=== PATIENT | female | born 1995 ===

== ENCOUNTER 2017-02-12 06:13 | Inpatient (IN) ==
[2017-02-12] MEDS ORDERED: CITRIC ACID/SODIUM CITRATE 30 ML UDCUP PO ONE (06:38)
[2017-02-12] MEDS ORDERED: FAMOTIDINE 20 MG/2 ML VIAL IV ONE (06:38)
[2017-02-12] MEDS ORDERED: ceFAZolin 2,000 MG in PREMIX 1 EACH IV ONE (06:38)
[2017-02-12 07:59] LABS: Basophils % 0.1 % (0.0-0.8); Eosinophils % 0.3 % (0.00-10.9); Hematocrit 27.7 VOL% (35.7-47.0); Hemoglobin 8.9 GM/DL (12.0-16.0); Immature Granulocytes % 0.8 %; Immature Granulocytes Absolute 0.08 #; Lymphocytes # 0.9 10*3/uL (1.4-4.0); Mean Corpuscular HGB Conc 32.1 GM/DL (32-36); Mean Corpuscular Hemoglobin 25 PG (27-34); Mean Corpuscular Volume 77.6 FL (87-102); Monocytes # 0.6 10*3/uL (0.11-0.8); Monocytes % 6.5 % (1.7-12.7); Neutrophils # 8.2 10*3/uL (1.4-7.4); Neutrophils % 83.3 % (38.7-73.9); Platelet Count 83 T/CUMM (130-400); Red Blood Count 3.57 MC/CUMM (3.8-5.5); Red Cell Distribution Width 15.4 % (9.3-17.3); White Blood Count 9.8 T/CUMM (4-12)
[2017-02-12 08:44] LABS: Albumin 2.5 G/DL (3.4-5.0); Bilirubin,Total 0.4 MG/DL (0.2-1.0); Osmolality,Calculated 273.5 MOS/KG (273-304); Potassium 4.2 MMOL/L (3.5-5.1); Total Protein 5.8 G/DL (6.4-8.3)
[2017-02-12] MEDS ORDERED: SODIUM CHLORIDE 0.9% 250 ML IV PRN (08:45)
[2017-02-12] MEDS ORDERED: OXYTOCIN 10 UNIT/ML VIAL IM ONE (09:00)
[2017-02-12] MEDS ORDERED: OXYTOCIN/LR 30 UNIT/1,000 ML BAG IV ONE (09:00)
[2017-02-12 09:03] LABS: Hypochromasia Slight; Polychromasia Slight
--- NOTE | 2017-02-12 09:16 | OB/GYN History & Physical ---
History of Present Illness Chief complaint: In for repeat c/s due to previous section History of present illness: Ms. Knox is a 21 year old female 2 para 1 living 1. Her VIDA is 2016 for an estimated gestational age of 39 weeks and 1 day. The patient presents for elective repeat section due to previous section. The risks and benefits of been thoroughly discussed with this patient and significant other and plan of care has been discussed with Dr. Sequeira, all parties are in agreement plan. The patient received her care through the [facility] in the [place] [facility]. She received routine care and her course was uneventful. labs: She is O+, serology is nonreactive, rubella is indeterminate, hepatitis B is negative, HIV is negative, GBS culture is negative review of systems is negative with exception of above. Home Medications Medication Instructions Recorded Confirmed Type Multivitamin () [ 1 tablet PO DAILY 02/12/17 02/12/17 History Vitamin] Allergies Allergy/AdvReac Type Severity Reaction Status Date / Time No Known Allergies Allergy Unverified 04/02/16 19:09 12 point system: reviewed and no additional remarkable complaints except as stated Medical,Surgical,& Family Hx - Medical History Medical History: noncontributory Neurology: No history of: Seizures HEENT: History of: Eye Problem (wears glasses) No history of: Ear Problem, Dental Problems, Glaucoma, Oral Cancer, HEENT Problems Respiratory: History of: Asthma No history of: Bronchitis, COPD, Intubation, Obstructive Sleep Apnea, Pulmonary Embolism, Pulmonary Hypertension, Pneumonia, Lung Cancer, Respiratory Problems - Surgical History HEENT Surgeries: Patient denies: Eye Surgery, Tonsilectomy & Adenoidectomy Abdominal Surgeries: Surgical HX of: Appendectomy, Cholecystectomy Reproductive Surgeries: Surgical HX of;: Section - Family History Family History: Reports;: Family Diabetes (PGM), Family Hypertension (PGM), Additional Family History (asthma - pt, pt's mother, PGM) Denies;: Family Cancer, Family Heart Disease, Family Hematology, Family Psychiatric Problems, Family Stroke - Social History Smoking Status: Never smoker Frequency of Alcohol Use: None Type of Drug Use: None Marital Status: Lives With:: Spouse Functional capacity: independent ambulation Exam ARBORIST CLIMBER - Constitutional Vitals: Vital Signs Temp Pulse Resp BP 02/12/17 08:00 97.4 F L 72 18 115/72 General appearance: no acute distress - Antepartum / Post Antepartum Exam Cervix -Dilatation: Fingertip Breast: bilateral: normal Abdomen obstetrics: Present: bowel sounds normal Vagina: Present: normal moisture Uterus exam: Present: enlarged - Respiratory Respiratory exam: Present: clear to auscultation bilaterally - Cardiovascular Cardiovascular exam: Present: regular rate and rhythm - GI/Abdominal GI/Abdominal exam: Present: normal bowel sounds, soft - Extremities Exam Extremities exam: Present: normal inspection - Back Exam Back exam: Present: normal inspection - Neurological Exam Neurological exam: Present: alert, oriented X3 - Psychiatric Psychiatric exam: Present: normal affect, normal mood - Skin Skin exam: Present: normal color, warm Assessment and Plan (1) Term Status: Acute Assessment and plan: Admit IV fluids Informed consent for repeat section Preop for section Anticipate viable infant Current Visit: Yes (2) Previous section Status: Acute Assessment and plan: Same as above Current Visit: Yes Results - Labs CBC & BMP: 02/12/17 07:52 02/12/17 06:45
[2017-02-12 09:37] LABS: Apearance,Urine CLEAR (Clear); Bilirubin,Urine Negative (Negative); Blood, Urine Negative (Negative); Glucose,Urine (UA) Negative (Negative); Ketones,Urine Negative (Negative); Nitrite,Urine Negative (Negative); Protein,Urine Negative; RBC,Urine <1 /HPF (0-4); Squamous Epithelial Cell,Urine Occasional /HPF (0-10); Urine Color Yellow (Yellow); Urine Specific Gravity 1.012 (1.001-1.035); Urine Urobilinogen < 2.0 EU/DL (0.2-1.0); WBC,Urine <1 /HPF (0-6)
[2017-02-12] MEDS: LACTATED RINGERS 1,000 ML IV SCH (09:37)
[2017-02-12] MEDS ORDERED: LACTATED RINGERS 1,000 ML IV ONE (09:40)
[2017-02-12 11:15] LABS: Cord Arterial Blood HCO3 26.7 MMOL/L
[2017-02-12 11:18] LABS: Cord Venous Blood HCO3 23.9 MMOL/L; Cord Venous Blood PCO2 47.4 MMHG; Cord Venous Blood PO2 56.7 MMHG
--- NOTE | 2017-02-12 11:24 | Operative Note ---
Date of procedure: 02/12/17 Procedure: Preoperative diagnosis: Term 39 weeks Postoperative diagnosis: Same, thrombocytopenia Anesthesia:[] General Estimated blood loss: [] 500 cc Surgeon: Dr. Sequeira Findings: [] Intrauterine delivered at 10:52 AM, female, weight 7 lbs. 13 oz., Apgars 8 at 1 minute and 9 at 5 minutes, delivered the placenta was at 1053 Complications: None Procedure: Low transverse section, intraoperative transfusion of 1 unit of packed RBCs doing the surgery. The patient was taken to the operating suite heart tones were obtained prior to and after regional anesthesia was obtained. She was placed in supine position her abdomen was prepped and draped in usual manner for major abdominal surgery. Through an abdominal incision the skin, subcutaneous, fascial layer and peritoneal the abdomen was entered. The bladder flap was created and a low transverse incision was made.. Fluid was clear and normal amount X, Apgars, the placenta was delivered and sent to lab for further evaluation. Injected with intrauterine Pitocin. The first layer of the uterus was closed with #1 Vicryl in a continuous locking manner. Close to imbricate the first layer with #1 Vicryl. The peritoneum was approximated with #2-0 Vicryl.[] All the last sponges and instruments were accounted for -2.) #2-0 Vicryl. Fascia was approximated with #0-0 Maxon.. The skin was approximated with vipul. She tolerated procedure well and was taken to recovery room in stable condition. Surgeon / Physician: Claudia Sequeira Results - Labs CBC & BMP: 02/12/17 07:52 02/12/17 06:45 Discharge Plan - Discharge Medications No Action Multivitamin () [ Vitamin] 1 tablet PO DAILY - Follow Up or Referral - Forms/Instructions
[2017-02-12] MEDS ORDERED: SEVOFLURANE 1 UNIT/15 MINUTE INH ONE (11:40)
[2017-02-12] MEDS ORDERED: PROPOFOL 200 MG/20 ML VIAL IV ONE (11:40)
[2017-02-12] MEDS ORDERED: SUCCINYLCHOLINE 200 MG/10 ML VIAL ONE (11:41)
[2017-02-12] MEDS ORDERED: ONDANSETRON 4 MG/2 ML VIAL ONE (11:41)
[2017-02-12] MEDS ORDERED: SODIUM CHLORIDE 0.9% 1,000 ML IV ONE (11:41)
[2017-02-12] MEDS ORDERED: fentaNYL 100 MCG/2 ML VIAL ONE (11:41)
[2017-02-12] MEDS ORDERED: ESMOLOL 100 MG/10 ML VIAL IV ONE (11:41)
[2017-02-12] MEDS ORDERED: MIDAZOLAM 2 MG/2 ML VIAL ONE (11:41)
[2017-02-12] MEDS ORDERED: METHYLERGONOVINE 0.2 MG/1 ML AMP IM ONE (11:42)
[2017-02-12] MEDS ORDERED: NALOXONE 0.4 MG/ML VIAL IV PRN (12:01)
[2017-02-12] MEDS ORDERED: HYDROmorphone 2 MG/1 ML VIAL ONE (12:08)
[2017-02-12] MEDS ORDERED: HYDROmorphone 2 MG/1 ML VIAL IV ONE (12:10)
[2017-02-12] MEDS ORDERED: HYDROmorphone PCA 30 MG/30 ML SYRINGE IV SCH (12:30)
[2017-02-12] MEDS ORDERED: OXYTOCIN/LR 20 UNIT/1,000 ML BAG IV ONE ×2 (14:45)
--- NOTE | 2017-02-12 15:19 | Anesthesia Post-Op ---
Anesthesia Post OP - Post Ansesthetic Evaluation Patient seen in post op: Yes Resp: within normal limits CV: within normal limits Mental: within normal limits Temp: within normal limits [id number]: within normal limits Nausea and Vomiting: within normal limits Pain: within normal limits
[2017-02-12 18:05] LABS: Basophils % 0.1 % (0.0-0.8); Hematocrit 25.8 VOL% (35.7-47.0); Hemoglobin 8.5 GM/DL (12.0-16.0); Immature Granulocytes % 0.9 %; Immature Granulocytes Absolute 0.13 #; Lymphocytes # 0.8 10*3/uL (1.4-4.0); Lymphocytes % 5.5 % (21.3-54.2); Mean Corpuscular HGB Conc 32.9 GM/DL (32-36); Mean Corpuscular Hemoglobin 27 PG (27-34); Mean Corpuscular Volume 80.6 FL (87-102); Monocytes # 0.6 10*3/uL (0.11-0.8); Monocytes % 3.9 % (1.7-12.7); Neutrophils # 13.4 10*3/uL (1.4-7.4); Neutrophils % 89.6 % (38.7-73.9); Platelet Count 88 T/CUMM (130-400); Red Cell Distribution Width 15.4 % (9.3-17.3)
[2017-02-12] MEDS ORDERED: ALBUTEROL 2.5 MG/3 ML NEB RESP TX PRN (18:58)
[2017-02-12] MEDS: CETIRIZINE 10 MG TABLET PO SCH (21:07)
[2017-02-13] MEDS: LACTATED RINGERS 1,000 ML IV SCH ×2 (00:02→08:40)
[2017-02-13 06:49] LABS: Basophils % 0.2 % (0.0-0.8); Eosinophils % 0.1 % (0.00-10.9); Hemoglobin 7.2 GM/DL (12.0-16.0); Immature Granulocytes % 0.6 %; Immature Granulocytes Absolute 0.07 #; Lymphocytes # 0.9 10*3/uL (1.4-4.0); Lymphocytes % 8.1 % (21.3-54.2); Mean Corpuscular HGB Conc 32.7 GM/DL (32-36); Mean Corpuscular Hemoglobin 26 PG (27-34); Mean Corpuscular Volume 80.3 FL (87-102); Mean Platelet Volume 13.1 FL (9.6-12.0); Monocytes # 0.6 10*3/uL (0.11-0.8); Monocytes % 5.5 % (1.7-12.7); Neutrophils # 9.9 10*3/uL (1.4-7.4); Neutrophils % 85.5 % (38.7-73.9); Platelet Count 110 T/CUMM (130-400); Red Blood Count 2.74 MC/CUMM (3.8-5.5); Red Cell Distribution Width 15.8 % (9.3-17.3); White Blood Count 11.6 T/CUMM (4-12)
[2017-02-13] MEDS: FERROUS SULFATE 325 MG TABLET PO SCH ×3 (08:19→20:45)
[2017-02-13] MEDS: CETIRIZINE 10 MG TABLET PO SCH (08:19)
[2017-02-13] MEDS: DOCUSATE SODIUM 100 MG CAPSULE PO SCH ×2 (08:19→20:45)
--- NOTE | 2017-02-13 09:49 | OB/GYN Progress Note ---
Assessment and Plan (1) Term Status: Acute Assessment and plan: Admit IV fluids Informed consent for repeat section Preop for section Anticipate viable infant Current Visit: Yes (2) Previous section Status: Acute Assessment and plan: Same as above Current Visit: Yes (3) Status post repeat low transverse section Status: Acute Assessment and plan: Initiate routine postop orders Type and crossmatch and transfuse 2 units of packed RBCs Current Visit: Yes MANAGER DATA WAREHOUSE - PN: Subj Interval history: Complains of occasional shortness of breath and wheezing. Bonding well with infant Exam MANAGER DATA WAREHOUSE - Constitutional Vitals: Vital Signs Temp Pulse Pulse Resp BP BP Pulse Ox 02/13/17 07:26 98.4 F 105 H 18 120/70 02/13/17 04:00 99.6 F 95 H 95 H 18 116/68 116/68 99 02/13/17 02:37 97.8 F 84 18 110/66 99 02/13/17 01:08 97.4 F L 86 18 112/75 99 02/13/17 01:03 97.9 F 87 18 110/69 98 02/13/17 00:58 97.8 F 87 18 111/64 99 02/13/17 00:49 96.7 F L 93 H 18 111/70 96 02/12/17 23:15 97.5 F L 89 89 18 107/72 107/72 99 02/12/17 20:00 98.4 F 102 H 102 H 20 125/72 125/72 99 02/12/17 18:00 97.6 F 97 H 20 121/76 02/12/17 17:00 101 H 20 122/74 02/12/17 16:00 96 H 20 125/73 02/12/17 15:30 81 18 119/76 02/12/17 15:00 97.4 F L 84 18 119/70 02/12/17 14:45 92 H 20 117/89 97 02/12/17 13:53 97.6 F 84 18 135/86 97 02/12/17 13:45 87 18 121/61 98 02/12/17 13:30 91 H 18 135/83 99 02/12/17 13:23 97.9 F 78 18 135/83 99 02/12/17 13:15 84 20 135/83 100 02/12/17 13:00 81 18 129/79 100 05/30/17 12:53 97.8 F 81 18 141/83 02/12/17 12:46 80 18 135/75 100 02/12/17 12:37 97.6 F 82 18 127/73 02/12/17 12:23 97.5 F L 80 18 129/69 100 02/12/17 12:17 97.8 F 90 20 126/72 100 02/12/17 12:12 97.4 F L 84 18 137/76 100 02/12/17 12:07 97.5 F L 85 20 137/74 Pulse Ox 02/13/17 07:26 96 02/13/17 04:00 99 02/13/17 02:37 02/13/17 01:08 02/13/17 01:03 02/13/17 00:58 02/13/17 00:49 02/12/17 23:15 99 02/12/17 20:00 99 02/12/17 18:00 98 02/12/17 17:00 98 02/12/17 16:00 98 02/12/17 15:30 98 02/12/17 15:00 98 02/12/17 14:45 02/12/17 13:53 02/12/17 13:45 02/12/17 13:30 02/12/17 13:23 02/12/17 13:15 02/12/17 13:00 02/12/17 12:53 02/12/17 12:46 02/12/17 12:37 02/12/17 12:23 02/12/17 12:17 02/12/17 12:12 02/12/17 12:07 General appearance: no acute distress - Antepartum / Post Post Exam Breast: bilateral: normal Abdomen obstetrics: Present: bowel sounds normal Vagina: Present: discharge (Light lochia rubra) Uterus exam: Present: enlarged (Fundus firm and midline) Anus/Rectum: Present: normal perianal skin - Gyencological / Post Surgical Post Surgical Exam Lungs: bilateral: wheezes Chest: Normal S1, Normal S2 Extremities MANAGER DATA WAREHOUSE: Present: normal Abdomen obstetrics progress note: Present: normal appearance Incision OB: Present: normal, intact - Respiratory Respiratory exam: Present: wheezes - Cardiovascular Cardiovascular exam: Present: regular rate and rhythm - GI/Abdominal GI/Abdominal exam: Present: normal bowel sounds, soft - Extremities Exam Extremities exam: Present: normal inspection - Back Exam Back exam: Present: normal inspection - Neurological Exam Neurological exam: Present: alert, oriented X3 - Psychiatric Psychiatric exam: Present: normal affect, normal mood - Skin Skin exam: Present: normal color, warm Results - Labs CBC & BMP: 02/13/17 06:16 02/12/17 06:45
[2017-02-13] MEDS ORDERED: SODIUM CHLORIDE 0.9% 250 ML IV PRN (09:50)
[2017-02-13] MEDS: ALBUTEROL 2.5 MG/3 ML NEB RESP TX SCH ×2 (13:23→20:04)
[2017-02-13] MEDS: IBUPROFEN 800 MG TABLET PO PRN (14:44)
[2017-02-13 18:07] LABS: Hematocrit 29.3 VOL% (35.7-47.0)
[2017-02-13 18:11] LABS: Hemoglobin 9.6 GM/DL (12.0-16.0)
[2017-02-13] MEDS ORDERED: oxyCODONE/ACETAMINOPHEN 5-325 MG TABLET PO PRN (19:11)
[2017-02-14] MEDS: ALBUTEROL 2.5 MG/3 ML NEB RESP TX SCH ×4 (00:51→20:07)
[2017-02-14] MEDS: DOCUSATE SODIUM 100 MG CAPSULE PO SCH ×2 (08:05→21:00)
[2017-02-14] MEDS: CETIRIZINE 10 MG TABLET PO SCH (08:05)
[2017-02-14] MEDS: FERROUS SULFATE 325 MG TABLET PO SCH ×3 (08:05→21:00)
[2017-02-14] MEDS: IBUPROFEN 800 MG TABLET PO PRN ×2 (08:06→18:38)
[2017-02-14] MEDS: oxyCODONE/ACETAMINOPHEN 5-325 MG TABLET PO PRN ×2 (08:06→18:38)
[2017-02-14] MEDS ORDERED: SIMETHICONE CHEW 80 MG TABLET PO PRN (09:45)
[2017-02-14] MEDS ORDERED: MAGNESIUM HYDROXIDE SUSP 30 ML UDCUP PO PRN (09:45)
--- NOTE | 2017-02-14 09:50 | OB/GYN Progress Note ---
Assessment and Plan (1) Term Status: Acute Assessment and plan: Admit IV fluids Informed consent for repeat section Preop for section Anticipate viable infant Current Visit: Yes (2) Previous section Status: Acute Assessment and plan: Same as above Current Visit: Yes (3) Status post repeat low transverse section Status: Acute Assessment and plan: Initiate routine postop orders Type and crossmatch and transfuse 2 units of packed RBCs Current Visit: Yes RECONCILIATION ANALYST - PN: Subj Interval history: Stable with no complaints. Bonding well with Exam RECONCILIATION ANALYST - Constitutional Vitals: Vital Signs Temp Pulse Pulse Resp BP BP Pulse Ox 02/14/17 08:00 89 18 02/14/17 07:16 97.4 F L 93 H 18 122/70 02/14/17 06:00 18 02/14/17 04:00 97.6 F 79 20 99/54 02/14/17 02:00 18 02/14/17 00:56 88 20 02/14/17 00:51 89 20 02/13/17 23:44 98.0 F 85 20 99/57 02/13/17 19:59 97.2 F L 87 18 100/64 02/13/17 17:11 99.1 F 109 H 20 137/80 02/13/17 16:00 97.8 F 97 H 18 113/60 02/13/17 15:22 97.8 F 97 H 18 113/60 95 02/13/17 14:22 97.5 F L 111 H 18 125/77 97 02/13/17 13:52 97.6 F 106 H 18 120/69 97 02/13/17 13:47 97.2 F L 110 H 18 113/73 97 02/13/17 13:42 97.8 F 105 H 18 122/71 98 02/13/17 13:37 97.5 F L 105 H 18 125/73 98 02/13/17 13:23 97 H 18 02/13/17 12:42 97.2 F L 109 H 18 127/80 97 02/13/17 11:42 97.5 F L 101 H 18 109/63 95 02/13/17 11:12 97.4 F L 95 H 18 106/56 96 02/13/17 11:07 97.2 F L 93 H 18 104/60 96 02/13/17 11:02 97.5 F L 100 H 18 113/62 95 02/13/17 10:57 97.8 F 100 H 18 113/70 95 02/13/17 10:00 18 Pulse Ox 02/14/17 08:00 98 02/14/17 07:16 98 02/14/17 06:00 02/14/17 04:00 99 02/14/17 02:00 02/14/17 00:56 100 02/14/17 00:51 99 02/13/17 23:44 99 02/13/17 19:59 100 02/13/17 17:11 02/13/17 16:00 02/13/17 15:22 02/13/17 14:22 02/13/17 13:52 02/13/17 13:47 02/13/17 13:42 02/13/17 13:37 02/13/17 13:23 97 02/13/17 12:42 02/13/17 11:42 02/13/17 11:12 02/13/17 11:07 02/13/17 11:02 02/13/17 10:57 02/13/17 10:00 General appearance: no acute distress - Antepartum / Post Post Exam Breast: bilateral: normal Abdomen obstetrics: Present: bowel sounds normal Vagina: Present: normal moisture, discharge (Light lochia rubra) Uterus exam: Present: enlarged (Fundus firm and midline) Anus/Rectum: Present: normal perianal skin - Gyencological / Post Surgical Post Surgical Exam Lungs: bilateral: normal Chest: Normal S1, Normal S2 Extremities RECONCILIATION ANALYST: Present: edema (Trace edema in lower extremity) Abdomen obstetrics progress note: Present: normal appearance Incision OB: Present: normal, intact - Head Head exam: Present: normal inspection - Respiratory Respiratory exam: Present: clear to auscultation bilaterally - Cardiovascular Cardiovascular exam: Present: regular rate and rhythm - GI/Abdominal GI/Abdominal exam: Present: normal bowel sounds, soft - Extremities Exam Extremities exam: Present: normal inspection - Back Exam Back exam: Present: normal inspection - Neurological Exam Neurological exam: Present: alert, oriented X3 - Psychiatric Psychiatric exam: Present: normal affect, normal mood - Skin Skin exam: Present: normal color, warm Results - Labs CBC & BMP: 02/13/17 17:21 02/12/17 06:45
[2017-02-15] MEDS: ALBUTEROL 2.5 MG/3 ML NEB RESP TX SCH ×3 (00:35→13:53)
[2017-02-15] MEDS: oxyCODONE/ACETAMINOPHEN 5-325 MG TABLET PO PRN ×2 (04:30→13:10)
[2017-02-15] MEDS: FERROUS SULFATE 325 MG TABLET PO SCH ×2 (09:38→14:46)
[2017-02-15] MEDS: CETIRIZINE 10 MG TABLET PO SCH (09:38)
[2017-02-15] MEDS: DOCUSATE SODIUM 100 MG CAPSULE PO SCH (09:38)
[2017-02-15 11:49] VITALS: BP 116/60
--- NOTE | 2017-02-15 14:36 | Discharge Summary ---
Hospital Course - Hospital Course Hospital Course: Postop day #2 Status post section, also thrombocytopenia. Patient received packed RBCs and platelets 2 on her hospitalization secondary to thrombocytopenia. Abdomen soft nontender no bruising noted Uterus is nice and firm no vaginal bleeding noted Extremities well with no limits and neurologic grossly intact Assessment plan discharge follow-up her office in approximately 2 weeks. Specialty Discharge - Follow Up or Referrals Follow up with: Claudia Sequeira MD [Physician] - 02/26/17 10:30 am Discharge Plan - Discharge Data Condition at Discharge: Stable Discharge Diet: advance to your usual diet Activity: resume usual activities as tolerated Hygiene: no restrictions Weight Bearing at Discharge: full weight bearing Contact your physician if you experience:: fever over 101, Bleeding - Discharge Medications New Ferrous Sulfate Tab [Feosol Original Tab] 325 mg PO TID #60 tablet Ibuprofen Tab [Motrin Tab] 800 mg PO Q6H PRN #30 tablet PRN Reason: Pain Albuterol Neb [Proventil Neb] 2.5 mg RESP TX RT Q6H #1 oxyCODONE/ACETAMINOPHEN 5-325 [Percocet 5-325] 1 tablet PO Q6H PRN #30 tablet PRN Reason: Pain Moderate (4-7) No Action Multivitamin () [ Vitamin] 1 tablet PO DAILY - Follow Up or Referral Follow Up: Claudia Sequeira MD [Physician] - 02/26/17 10:30 am - Forms/Instructions Exam - Constitutional Vitals: Period Temp Pulse Resp BP Sys/Park Pulse Ox Last 24 Hr 96.8 F-98.7 F 70-106 16-20 105-134/54-74 97-99 DS: Provider Date of admission: 02/12/17 06:38 Primary care physician: Carolin Hermosillo MD Attending physician on admission: Claudia Sequeira MD Consults: 02/12/17 06:38 Consult to Anesthesiology [CONS] Routine Consulting Provider: Reason for Anesthesiology: Pre-op Clearance Discharging clinician: Claudia Sequeira MD
[2017-02-15] MEDS ORDERED: DIPH/TET/ACEL PERT BOOSTER VACCINE 0.5 ML VIAL IM ONE (14:55)
== END 2017-02-15 15:20 | disposition home or self-care (01) | DRG 540 ==
LOC: N.LDOUT 06:13 → N.LD 06:20 → N.OB 14:40
PROVIDERS: ADMIT Obstetrics & Gynecology; ATTEND Obstetrics & Gynecology
PROC: LDCSECT (ICD-10-PCS; 2017-02-12 10:00)

== ENCOUNTER 2018-05-21 07:21 | Inpatient (IN) ==
[2018-05-21] MEDS ORDERED: ceFAZolin 2,000 MG in PREMIX 1 EACH IV ONE (08:10)
[2018-05-21] MEDS ORDERED: CITRIC ACID/SODIUM CITRATE 30 ML UDCUP PO ONE (08:10)
[2018-05-21] MEDS ORDERED: OXYTOCIN 10 UNIT/ML VIAL IM ONE (08:12)
[2018-05-21] MEDS ORDERED: OXYTOCIN/LR 30 UNIT/1,000 ML BAG IV ONE (08:12)
[2018-05-21] MEDS ORDERED: FAMOTIDINE 20 MG/2 ML VIAL IV ONE (08:13)
[2018-05-21] MEDS ORDERED: PROMETHAZINE 25 MG/1 ML VIAL IM PRN ×2 (08:13→14:56)
[2018-05-21] MEDS ORDERED: hydrOXYzine HCL 25 MG/1 ML VIAL IM PRN (08:13)
[2018-05-21] MEDS ORDERED: LACTATED RINGERS 1,000 ML IV ONE (08:13)
[2018-05-21] MEDS ORDERED: diphenhydrAMINE 50 MG/1 ML VIAL IV PRN (08:13)
[2018-05-21] MEDS ORDERED: ePHEDrine 50 MG/ML AMP IV PRN (08:13)
[2018-05-21] MEDS ORDERED: LACTATED RINGERS 1,000 ML IV SCH (08:30)
[2018-05-21 09:10] LABS: Basophils % 0.1 % (0.0-0.8); Eosinophils % 0.3 % (0.00-10.9); Immature Granulocytes % 0.9 %; Immature Granulocytes Absolute 0.07 #; Lymphocytes # 0.8 10*3/uL (1.4-4.0); Lymphocytes % 10.7 % (21.3-54.2); Mean Corpuscular HGB Conc 32.1 GM/DL (32-36); Mean Corpuscular Hemoglobin 27 PG (27-34); Mean Corpuscular Volume 82.4 FL (87-102); Monocytes # 0.5 10*3/uL (0.11-0.8); Monocytes % 6.7 % (1.7-12.7); Neutrophils # 6.1 10*3/uL (1.4-7.4); Neutrophils % 81.3 % (38.7-73.9); Red Cell Distribution Width 14.9 % (9.3-17.3); White Blood Count 7.5 T/CUMM (4-12)
[2018-05-21 09:13] LABS: Platelet Count 61 T/CUMM (130-400)
[2018-05-21 09:37] LABS: Albumin 2.1 G/DL (3.4-5.0); Bilirubin,Total 0.6 MG/DL (0.2-1.0); Calcium 8.2 MG/DL (8.5-10.1); Osmolality,Calculated 278.3 MOS/KG (273-304); Potassium 3.7 MMOL/L (3.5-5.1); Total Protein 5.4 G/DL (6.4-8.3)
[2018-05-21 09:52] LABS: Platelet Estimate Decreased
[2018-05-21] MEDS ORDERED: RHO(D) IMMUNE GLOBULIN 300 MCG SYRINGE IM ONE (10:16)
[2018-05-21] MEDS ORDERED: MAGNESIUM HYDROXIDE SUSP 30 ML UDCUP PO PRN (10:16)
[2018-05-21] MEDS ORDERED: OXYTOCIN/LR 20 UNIT/1,000 ML BAG IV ONE (10:16)
[2018-05-21] MEDS ORDERED: ONDANSETRON 4 MG/2 ML VIAL IV PRN (10:16)
[2018-05-21] MEDS ORDERED: SIMETHICONE CHEW 80 MG TABLET PO PRN (10:16)
[2018-05-21] MEDS ORDERED: ACETAMINOPHEN 325 MG TABLET PO PRN (10:16)
[2018-05-21] MEDS ORDERED: NALOXONE 0.4 MG/ML VIAL IV PRN (10:24)
[2018-05-21] MEDS ORDERED: MEPERIDINE 25 MG/1 ML VIAL IV PRN (10:24)
[2018-05-21] MEDS ORDERED: ceFAZolin 1,000 MG in SYRINGE 1 EACH IV SCH (10:30)
[2018-05-21] MEDS ORDERED: PHENYLEPHRINE 1 MG/10 ML SYRINGE IV ONE (10:31)
[2018-05-21] MEDS ORDERED: MORPHINE 10 MG/10 ML VIAL ONE (10:32)
[2018-05-21] MEDS ORDERED: PROPOFOL 200 MG/20 ML VIAL IV ONE (10:32)
[2018-05-21] MEDS ORDERED: fentaNYL 100 MCG/2 ML VIAL ONE (10:32)
[2018-05-21] MEDS ORDERED: SUCCINYLCHOLINE 200 MG/10 ML VIAL ONE (10:33)
[2018-05-21] MEDS ORDERED: SEVOFLURANE 1 UNIT/15 MINUTE INH ONE (10:33)
[2018-05-21 10:35] LABS: Cord Arterial Blood HCO3 21.4 MMOL/L; Cord Venous Blood HCO3 24.1 MMOL/L; Cord Venous Blood PCO2 46.7 MMHG; Cord Venous Blood PO2 46.5 MMHG
[2018-05-21] MEDS ORDERED: SODIUM CHLORIDE 0.9% 1,000 ML IV PRN ×4 (11:17→18:47)
[2018-05-21] MEDS: MORPHINE PCA 30 MG/30 ML SYRINGE IV SCH ×2 (11:35→17:39)
[2018-05-21] MEDS: LACTATED RINGERS 1,000 ML IV SCH (17:43)
[2018-05-21 18:24] LABS: Basophils % 0.1 % (0.0-0.8); Hematocrit 20.9 VOL% (35.7-47.0); Immature Granulocytes % 0.9 %; Immature Granulocytes Absolute 0.11 #; Lymphocytes # 1.1 10*3/uL (1.4-4.0); Lymphocytes % 9.3 % (21.3-54.2); Mean Corpuscular HGB Conc 31.1 GM/DL (32-36); Mean Corpuscular Hemoglobin 26 PG (27-34); Mean Corpuscular Volume 84.3 FL (87-102); Mean Platelet Volume 11.6 FL (9.6-12.0); Monocytes # 0.5 10*3/uL (0.11-0.8); Monocytes % 4.2 % (1.7-12.7); Neutrophils # 10.2 10*3/uL (1.4-7.4); Neutrophils % 85.5 % (38.7-73.9); Platelet Count 165 T/CUMM (130-400); Red Blood Count 2.48 MC/CUMM (3.8-5.5); Red Cell Distribution Width 15.1 % (9.3-17.3); White Blood Count 11.9 T/CUMM (4-12)
[2018-05-21 18:40] LABS: Hemoglobin 6.5 GM/DL (12.0-16.0)
[2018-05-21] MEDS: DOCUSATE SODIUM 100 MG CAPSULE PO SCH (23:21)
[2018-05-22] MEDS ORDERED: ceFAZolin 1,000 MG in SYRINGE 1 EACH IV ONE (01:00)
[2018-05-22] MEDS: LACTATED RINGERS 1,000 ML IV SCH ×2 (03:51)
[2018-05-22 06:03] LABS: Basophils % 0.1 % (0.0-0.8); Eosinophils % 0.1 % (0.00-10.9); Hematocrit 25.4 VOL% (35.7-47.0); Hemoglobin 8.4 GM/DL (12.0-16.0); Immature Granulocytes % 0.8 %; Immature Granulocytes Absolute 0.07 #; Lymphocytes # 0.9 10*3/uL (1.4-4.0); Mean Corpuscular HGB Conc 33.1 GM/DL (32-36); Mean Corpuscular Hemoglobin 28 PG (27-34); Mean Corpuscular Volume 83.6 FL (87-102); Mean Platelet Volume 12.9 FL (9.6-12.0); Monocytes # 0.6 10*3/uL (0.11-0.8); Monocytes % 6.5 % (1.7-12.7); Neutrophils # 7.1 10*3/uL (1.4-7.4); Neutrophils % 82.5 % (38.7-73.9); Platelet Count 95 T/CUMM (130-400); Red Blood Count 3.04 MC/CUMM (3.8-5.5); Red Cell Distribution Width 15.1 % (9.3-17.3); White Blood Count 8.6 T/CUMM (4-12)
[2018-05-22 06:04] LABS: Hemoglobin 8.2 GM/DL (12.0-16.0)
[2018-05-22 06:23] LABS: Hypochromasia 1+; Ovalocytes Slight; Platelet Estimate Decreased
[2018-05-22] MEDS: FERROUS SULFATE 325 MG TABLET PO SCH ×2 (09:43→20:04)
[2018-05-22] MEDS: DOCUSATE SODIUM 100 MG CAPSULE PO SCH ×2 (09:43→20:04)
[2018-05-22] MEDS: MULTIVITAMIN (PRENATAL) TABLET PO SCH (09:43)
[2018-05-22] MEDS: MAGNESIUM HYDROXIDE SUSP 30 ML UDCUP PO PRN ×2 (09:44→20:05)
[2018-05-22] MEDS: METOCLOPRAMIDE 10 MG/2 ML VIAL IV SCH ×2 (09:58→16:45)
[2018-05-22] MEDS: IBUPROFEN 800 MG TABLET PO PRN ×2 (12:47→20:04)
[2018-05-23] MEDS: METOCLOPRAMIDE 10 MG/2 ML VIAL IV SCH ×2 (00:29→10:03)
[2018-05-23] MEDS: IBUPROFEN 800 MG TABLET PO PRN (05:29)
[2018-05-23] MEDS: DOCUSATE SODIUM 100 MG CAPSULE PO SCH (10:03)
[2018-05-23] MEDS: FERROUS SULFATE 325 MG TABLET PO SCH (10:03)
[2018-05-23] MEDS: MULTIVITAMIN (PRENATAL) TABLET PO SCH (10:03)
[2018-05-23 11:48] VITALS: BP 119/72
[2018-05-23] MEDS ORDERED: DIPH/TET/ACEL PERT BOOSTER VACCINE 0.5 ML VIAL IM ONE (12:42)
[2018-05-23] MEDS ORDERED: MEASLES/MUMPS/RUBELLA VACCINE 0.5 ML VIAL SUBCUT ONE (12:42)
== END 2018-05-23 13:50 | disposition home or self-care (01) | DRG 540 ==
LOC: N.LDOUT 07:21 → N.LD 07:26 → N.OB 14:29
PROVIDERS: ADMIT Obstetrics & Gynecology; ATTEND Obstetrics & Gynecology
PROC: LDCSECT (ICD-10-PCS; 2018-05-21 09:30)